=== PATIENT | female | born 1955 | race Caucasian/White ===

== ENCOUNTER 2022-10-29 13:25 | Outpatient (CLI) | payer MEDICARE, BC | END 2022-10-29 13:26 | disposition home or self-care (01) | LOC: BICMAMMO 13:25 | PROVIDERS: ATTEND Obstetrics & Gynecology | DX: Z12.31 Encounter for screening mammogram for malignant neoplasm of breast (principal); N64.4 Mastodynia; Z80.3 Family history of malignant neoplasm of breast | CPT/HCPCS: 77063; 77067 ==

== ENCOUNTER 2024-03-28 10:31 | Emergency (ER) | payer MEDICARE, BC ==
[2024-03-28] MEDS ORDERED: Acetaminophen 500 MG TAB ONE (11:13)
== END 2024-03-28 12:22 | disposition home or self-care (01) ==
LOC: ERS 10:31
DX: M25.551 Pain in right hip (principal); I10 Essential (primary) hypertension; E03.9 Hypothyroidism, unspecified; Z79.899 Other long term (current) drug therapy; W19.XXXA Unspecified fall, initial encounter